=== PATIENT | male | born 1980 | race Two or more races ===

== ENCOUNTER 2025-02-06 20:31 | Emergency (ER) | payer OTHER ==
[~2025-02-06] VITALS: Ht 172.7 cm; Wt 86.2 kg
[2025-02-06] MEDS ORDERED: KETOROLAC TROMETHAMINE 30 MG VIAL IV ONE (21:30)
[2025-02-06] MEDS ORDERED: TAMSULOSIN HCL 0.4 MG CAP PO ONE ×2 (21:30→22:03)
[2025-02-06] MEDS ORDERED: CEFTRIAXONE SODIUM 1,000 MG VIAL IV ONE (21:30)
[2025-02-06] MEDS ORDERED: FAMOtidine 10 MG/ML (4ML VIAL) IV ONE (21:30)
[2025-02-06] MEDS ORDERED: KETOROLAC TROMETHAMINE 30 MG VIAL ONE (22:03)
[2025-02-06] MEDS ORDERED: FAMOTIDINE/PF 20 MG/2 ML VIAL ONE (22:04)
[2025-02-06] MEDS ORDERED: CEFTRIAXONE SODIUM 1,000 MG VIAL ONE (22:04)
[2025-02-06 23:08] LABS: HEMATOCRIT 41.6 % (39.0-48.0); HEMOGLOBIN 14.4 g/dL (13-16.00); MEAN CELL VOLUME 87.1 fL (80.0-100.00); MEAN CORPUSCULAR HEMOGLOBIN 30.1 pg (27.00-32.0); MEAN CORPUSCULAR HGB CONC 34.6 g/dl (32.0-36.0); PLATELET COUNT 378 K/uL (150-450); RED BLOOD COUNT 4.77 M/uL (4.00-6.00); RED CELL DISTRIBUTION WIDTH 13.3 % (11.5-14.5)
[2025-02-06 23:13] LABS: PH,URINE 6.5 (5.0-8.0); URINE APPEARANCE Clear; URINE BILIRRUBIN Negative (NEGATIVE); URINE BLOOD Negative; URINE COLOR Yellow; URINE GLUCOSE Negative (NEGATIVE); URINE KETONE Negative (NEGATIVE); URINE LEUKOCYTE Negative; URINE NITRATE Negative; URINE PROTEIN Negative (NEGATIVE); URINE UROBILINOGEN 0.2 E.U./dl
[2025-02-06 23:18] LABS: URINE BACTERIA 4.8 uL (0.0-1933); URINE EPITHELIAL CELLS 4.2 uL (0.0-38.8); URINE WBC 3.3 uL (0.0-23.2)
[2025-02-06] MEDS ORDERED: ZOFRAN8 MG PO (23:20)
[2025-02-06] MEDS ORDERED: PEPCID AC20 MG PO (23:20)
[2025-02-06] MEDS ORDERED: KETO10TA2 PO (23:20)
[2025-02-06] MEDS ORDERED: TAMS0.4C PO (23:20)
[2025-02-06] MEDS ORDERED: BACTRIM DS TAB1 EACH PO (23:20)
[2025-02-06 23:25] LABS: INR 1.01; PARTIAL THROMBOPLASTIN TIME 25.5 SECONDS (22.0-34.0)
[2025-02-06 23:32] LABS: ALBUMIN 4.2 gm/dL (3.4-5.0); BILIRUBIN TOTAL 0.48 mg/dL (0.3-1.2); CALCIUM 9.7 mg/dL (8.5-10.1); CREATININE SERUM 1.31 mg/dL (0.70-1.30); GFR 59.72; GLOBULINA 3.7 G/DL (2.4-3.5); POTASSIUM 4.22 mEq/L (3.5-5.1); TOTAL PROTEIN 7.9 gm/dL (6.4-8.2)
[2025-02-06 23:57] LABS: URINE CAST 0.14 uL (0.0-1.40)
== END 2025-02-06 23:31 | disposition home or self-care (01) ==
LOC: ER 20:32
PROVIDERS: General Practice
DX: R10.9 Unspecified abdominal pain (principal)